=== PATIENT | female | born 1995 | race African-American/Black ===

== ENCOUNTER 2023-10-15 15:09 | Emergency (ER) | payer OTHER ==
[~2023-10-15] VITALS: Ht 172.7 cm; Wt 83.9 kg
[2023-10-15] MEDS ORDERED: diphenhydrAMINE HCL 50 MG/ML VIAL ONE (16:14)
[2023-10-15] MEDS ORDERED: LORAZEPAM INJ 2 MG/ML VIAL ONE (16:15)
[2023-10-15] MEDS: LORAZEPAM INJ 2 MG/ML VIAL IM ONE (16:16)
[2023-10-15] MEDS: diphenhydrAMINE HCL 50 MG/ML VIAL IM ONE (16:16)
[2023-10-15 16:36] LABS: PREGNANCY TEST URINE QUAL NEGATIVE (NEGATIVE)
[2023-10-15] MEDS ORDERED: ACETAMINOPHEN ES 500 MG TABLET ONE (20:35)
[2023-10-15] MEDS: ACETAMINOPHEN ES 500 MG TABLET PO ONE (20:37)
[2023-10-15 22:16] VITALS: BP 145/88; TEMP 98.3; O2SAT 96
== END 2023-10-15 22:16 | disposition home or self-care (01) ==
LOC: ER 15:12
DX: S00.83XA Contusion of other part of head, initial encounter (principal); M25.511 Pain in right shoulder; M25.512 Pain in left shoulder; Y04.2XXA Assault by strike against or bumped into by another person, initial encounter; Y93.89 Activity, other specified; Y92.89 Other specified places as the place of occurrence of the external cause; Y99.8 Other external cause status
CPT/HCPCS: 99285; 72125; 96372 ×2; 73030 ×2; 70450; 70486; 84703; J2060; J1200